=== PATIENT | female | born 1945 | race Caucasian/White ===

== ENCOUNTER 2020-07-29 09:48 | Emergency (ER) | payer OTHER ==
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
[2020-07-29 11:31] LABS: Absolute Lymphocytes (CBC) 1.2 K/uL (0.7-4.9); Basophils % 0.9 % (0-1.3); Hematocrit 35.4 % (36.0-45.0); Lymphocytes % 27.5 % (15.3-44.8); MPV 8.9 fL (7.6-11.3); RBC Red Blood Cell Count 3.62 M/uL (3.86-4.86)
[2020-07-29] MEDS ORDERED: NITROGLYCERIN 1 GM PKT TD ONE (11:35)
--- NOTE | 2020-07-29 11:41 | RAD REPORT ---
EXAM DESCRIPTION: RAD - Chest Single View - 07/29/2020 11:16 am CLINICAL HISTORY: CHEST PAIN, shortness of breath COMPARISON: May 2011, April 2010 TECHNIQUE: AP portable chest image was obtained 07/29/2020 11:16 am . FINDINGS: No peripheral mass or consolidations seen. Lung volumes are decreased compared to the 2 pr ior studies. Interstitial opacification is increased. In the acute clinical setting this is suspected to be interstitial edema or infiltrate. Minimal failure or volume overload would be possible. Heart size is normal range. No measurable pleural effusion and no pneumothorax. No acute bony abnormality s een. No acute aortic findings suspected. IMPRESSION: Increased interstitial opacification throughout both lung grace in part due to shallow inspiration. Interstitial pattern is increased over comparison and interstitial edema or infiltrate suspected.
[2020-07-29 11:58] LABS: ALT/SGPT 27 U/L (12-78); AST/SGOT 16 U/L (15-37); Albumin 3.7 g/dL (3.4-5.0); Alkaline Phosphatase 142 U/L (45-117); BUN Blood Urea Nitrogen 23 mg/dL (7-18); Bicarbonate 26 mmol/L (21-32); Bilirubin Direct < 0.1 mg/dL (0-0.2); Bilirubin Total 0.2 mg/dL (0.2-1.0); Glucose Level 123 mg/dL (74-106); Magnesium 1.9 mg/dL (1.8-2.4); NT PRO-BNP 259 pg/mL (<125); Potassium 4.2 mmol/L (3.5-5.1); Protein, Total 6.7 g/dL (6.4-8.2); Sodium Level 142 mmol/L (136-145); Troponin (Emerg Dept Use Only) 0.07 ng/mL (0.0-0.045)
--- NOTE | 2020-07-29 12:27 | EDPHYS ---
Physician Documentation [facility] Name: Anabel Mckeon Age: 74 yrs Sex: Female : 1945 Arrival Date: 07/29/2020 Time: 09:49 Bed 7 Private MD: ED Physician Dayday Gastelum HPI: 07/30 11:15 This 74 yrs old Female presents to ER via Wheelchair with complaints of Chest kdr Pain, Back Pain, Shortness Of Breath. 11:15 The patient or guardian reports chest pain that is located primarily in the substernal kdr area, anterior chest wall, left. Onset: suddenly, this morning. The pain does not radiate. Associated signs and symptoms: Pertinent positives: headache, shortness of breath. The chest pain is described as aching, burning, dull, a heaviness, a pressure. 11:15 Duration: The patient or guardian reports multiple episodes, that are intermittent, kdr that wax and wane, with no pattern, Now nearly completely resolved - the patient does not appear in any acute distress. Modifying factors: The symptoms are alleviated by nothing. the symptoms are aggravated by nothing. Severity of pain: At its worst the pain was mild in the emergency department the pain has improved markedly. The patient has not experienced similar symptoms in the past. The patient has not recently seen a physician. Historical: - Allergies: 07/29 10:00 VANCOMYCIN AND DERIVATIVES; tw2 - Home Meds: 10:00 levothyroxine oral [Active]; Primidone Oral [Active]; tw2 - PMHx: 10:00 Hypothyroidism; seizures - 40+ years ago; tw2 - Immunization history:: Adult Immunizations. - Social history:: Smoking status: . ROS: 07/30 11:15 Constitutional: Negative for fever, chills, and weight loss, Eyes: Negative for injury, kdr pain, redness, and discharge, ENT: Negative for injury, pain, and discharge, Neck: Negative for injury, pain, and swelling, Respiratory: Negative for shortness of breath, cough, wheezing, and pleuritic chest pain, Abdomen/GI: Negative for abdominal pain, nausea, vomiting, diarrhea, and constipation, Back: Negative for injury and pain, : Negative for injury, bleeding, discharge, and swelling, MS/Extremity: Negative for injury and deformity, Skin: Negative for injury, rash, and discoloration, Neuro: Negative for headache, weakness, numbness, tingling, and seizure activity. Psych: Negative for depression, anxiety, suicide ideation, homicidal ideation, and hallucinations, Allergy/Immunology: Negative for hives, rash, and allergies, Endocrine: Negative for neck swelling, polydipsia, polyuria, polyphagia, and marked weight changes, Hematologic/Lymphatic: Negative for swollen nodes, abnormal bleeding, and unusual bruising. Cardiovascular: Positive for chest pain, palpitations, Negative for edema, orthopnea. Exam: 07/29 11:41 ECG was reviewed by the Attending Physician. kdr 07/30 11:15 Constitutional: This is a well developed, well nourished patient who is awake, alert, kdr and in no acute distress. Head/Face: Normocephalic, atraumatic. Eyes: Pupils equal round and reactive to light, extra-ocular motions intact. Lids and lashes normal. Conjunctiva and sclera are non-icteric and not injected. Cornea within normal limits. Periorbital areas with no swelling, redness, or edema. Neck: Trachea midline, no thyromegaly or masses palpated, and no cervical lymphadenopathy. Supple, full range of motion without nuchal rigidity, or vertebral point tenderness. No Meningismus. Chest/axilla: Normal chest wall appearance and motion. Nontender with no deformity. No lesions are appreciated. Cardiovascular: Regular rate and rhythm with a normal S1 and S2. No gallops, murmurs, or rubs. Normal PMI, no JVD. No pulse deficits. Respiratory: Lungs have equal breath sounds bilaterally, clear to auscultation and percussion. No rales, rhonchi or wheezes noted. No increased work of breathing, no retractions or nasal flaring. Abdomen/GI: Soft, non-tender, with normal bowel sounds. No distension or tympany. No guarding or rebound. No evidence of tenderness throughout. Back: No spinal tenderness. No costovertebral tenderness. Full range of motion. Skin: Warm, dry with normal turgor. Normal color with no rashes, no lesions, and no evidence of cellulitis. MS/ Extremity: Pulses equal, no cyanosis. Neurovascular intact. Full, normal range of motion. Neuro: Awake and alert, GCS 15, oriented to person, place, time, and situation. Cranial nerves II-XII grossly intact. Motor strength 5/5 in all extremities. Sensory grossly intact. Cerebellar exam normal. Normal gait. Psych: Awake, alert, with orientation to person, place and time. Behavior, mood, and affect are within normal limits. Vital Signs: 07/29 09:57 Pulse 60; Resp 17; Temp 97.9(TE); Pulse Ox 99% on R/A; tw2 10:30 BP 124 / 76; Pulse 57; Resp 14; Pulse Ox 95% ; sv 11:27 BP 124 / 71; Pulse 53; Resp 19; Pulse Ox 93% ; Pain 5/10; jl7 12:09 BP 120 / 61; Pulse 52; Resp 14; Pulse Ox 97% ; Pain 0/10; jl7 12:09 Pulse 34 MON; jl7 13:53 BP 108 / 60; Pulse 57; Resp 14; Pulse Ox 93% ; jl7 14:28 BP 117 / 77; Pulse 53; Resp 15; Pulse Ox 96% ; sv 12:09 Sinus bradycardia jl7 MDM: 12:26 Patient medically screened. [facility] 07/30 11:15 Data reviewed: vital signs, nurses notes, lab test result(s), radiologic studies. kdr 07/29 10:54 Order name: Basic Metabolic Panel; Complete Time: 12:22 [facility] 07/29 10:54 Order name: CBC with Diff; Complete Time: 12:22 [facility] 07/29 10:54 Order name: LFT's; Complete Time: 12:22 kdr 07/29 10:54 Order name: Magnesium; Complete Time: 12:22 [facility] 07/29 10:54 Order name: NT PRO-BNP; Complete Time: 12:22 [facility] 07/29 10:54 Order name: PT-INR; Complete Time: 12:22 [facility] 07/29 10:54 Order name: Troponin (emerg Dept Use Only); Complete Time: 12:22 kdr 07/29 10:54 Order name: XRAY Chest (1 view); Complete Time: 12:22 kdr 07/29 10:54 Order name: EKG; Complete Time: 10:55 kdr 07/29 10:54 Order name: Cardiac monitoring; Complete Time: 11:17 kdr 07/29 14:57 Order name: SARS-COV-2 RT PCR; Complete Time: 15:39 EDMS 07/29 10:54 Order name: EKG - Nurse/Tech; Complete Time: 11:17 kdr 07/29 10:54 Order name: IV Saline Lock; Complete Time: 11: kdr 07/29 10:54 Order name: Labs collected and sent; Complete Time: : kdr 07/29 10:54 Order name: O2 Per Protocol; Complete Time: 11: kdr 07/29 10:54 Order name: O2 Sat Monitoring; Complete Time: : kdr EC/25 11:41 Rate is 54 beats/min. Rhythm is regular, Sinus bradycardia with No ectopy. QRS [place] is kdr Normal. [place] interval is normal. QRS interval is normal. QT interval is normal. Clinical impression: NSR w/ Non-specific ST/T Changes. Administered Medications: 11: Drug: Nitro-Bid Ointment 2 % 0.5 inches Route: Transdermal; Site: anterior chest wall; jl7 12:12 Follow up: Response: No adverse reaction; Pain is decreased jl7 12:30 Drug: Aspirin Chewable Tablet 324 mg Route: PO; jl7 14:29 Follow up: Response: No adverse reaction jl7 Disposition: 07/29/20 12:26 Transfer ordered to [facility]. Diagnosis are Non-ST elevation (NSTEMI) myocardial infarction, Bradycardia, unspecified. - Reason for transfer: Higher level of care. - Accepting physician is rr. - Condition is Fair. - Problem is new. - Symptoms are unchanged. Signatures: Dispatcher [employer] EDMS Daydya Gastelum MD MD kdr Chata Holder RN RN tw2 Moose Sung RN RN jl7 Corrections: (The following items were deleted from the chart) 14:09 13:14 CORONAVIRUS+MR.LAB.BRZ ordered. [facility] EDMS 15:49 12:26 07/29/2020 12:26 Transfer ordered to [facility]. Diagnosis is Non-ST jl7 elevation (NSTEMI) myocardial infarction; Bradycardia, unspecified. Reason for transfer: Higher level of care. Accepting physician is rr. Condition is Fair. Problem is new. Symptoms are unchanged. kdr
--- NOTE | 2020-07-29 12:27 | ER ---
Nurse's Notes [facility] Name: Anabel Mckeon Age: 74 yrs Sex: Female : 1945 Arrival Date: 07/29/2020 Time: 09:49 Bed 7 Private MD: Diagnosis: Non-ST elevation (NSTEMI) myocardial infarction;Bradycardia, unspecified Presentation: 07/29 09:57 Chief complaint: Patient states: SOB when walking this morning at 730, chest pain tw2 started this morning then and hasnt gone away, it is pain in the center of my chest and radiates toward the back. Coronavirus screen: At this time, the client does not indicate any symptoms associated with coronavirus-19. Ebola Screen: Patient denies travel to an Ebola-affected area in the 21 days before illness onset. Initial Sepsis Screen: Does the patient meet any 2 criteria? No. Patient's initial sepsis screen is negative. Does the patient have a suspected source of infection? No. Patient's initial sepsis screen is negative. Risk Assessment: Do you want to hurt yourself or someone else? Patient reports no desire to harm self or others. Onset of symptoms was July 29, 2020. 09:57 Method Of Arrival: Wheelchair tw2 09:57 Acuity: JUAN 3 tw2 Triage Assessment: 10:00 General: Appears in no apparent distress. well groomed, Behavior is calm, cooperative, tw2 appropriate for age. Pain: Complains of pain in mid-sternal area Pain radiates to back. Cardiovascular: Reports chest pain, shortness of breath, since this morning at 730. Historical: - Allergies: 10:00 VANCOMYCIN AND DERIVATIVES; tw2 - Home Meds: 10:00 levothyroxine oral [Active]; Primidone Oral [Active]; tw2 - PMHx: 10:00 Hypothyroidism; seizures - 40+ years ago; tw2 - Immunization history:: Adult Immunizations. - Social history:: Smoking status: . Screenin:35 Abuse screen: Denies threats or abuse. Nutritional screening: No deficits noted. tw2 Tuberculosis screening: No symptoms or risk factors identified. Fall Risk None identified. Assessment: 10:35 Pain: Pain began 3 hours ago. tw2 10:45 General: Appears in no apparent distress. uncomfortable, Behavior is calm, cooperative, jl7 appropriate for age. Pain: Complains of pain in mid-sternal area Pain radiates to back and left arm Pain currently is 5 out of 10 on a pain scale. at worst was 7 out of 10 on a pain scale. Quality of pain is described as pressure, Pain began 3 hours ago. Is continuous. Neuro: Level of Consciousness is awake, alert, obeys commands, Oriented to person, place, time, situation. Cardiovascular: Reports chest pain, nausea, shortness of breath, Patient's skin is warm and dry. Rhythm is regular. Respiratory: Airway is patent Respiratory effort is even, unlabored, Respiratory pattern is regular, symmetrical. Derm: Skin is pink, warm \T\ dry. 11:55 Reassessment: Pt HR noted to be 34 on monitor, Dr. Gastelum notified and at bedside, jl7 repeat EKG done, pt denies pain and reports a little pressure after the EKG but that was it. 12:09 Reassessment: Dr. Gastelum at bedside discussing results and POC, pt verbalizes [facility] understanding. 13:00 Reassessment: Patient appears in no apparent distress at this time. Patient and/or jl7 family updated on plan of care and expected duration. Pain level reassessed. Patient is alert, oriented x 3, equal unlabored respirations, skin warm/dry/pink. Patient denies pain at this time. 14:00 Reassessment: Patient appears in no apparent distress at this time. No changes from jl7 previously documented assessment. Patient and/or family updated on plan of care and expected duration. Pain level reassessed. Patient is alert, oriented x 3, equal unlabored respirations, skin warm/dry/pink. Vital Signs: 09:57 Pulse 60; Resp 17; Temp 97.9(TE); Pulse Ox 99% on R/A; tw2 10:30 BP 124 / 76; Pulse 57; Resp 14; Pulse Ox 95% ; sv 11:27 BP 124 / 71; Pulse 53; Resp 19; Pulse Ox 93% ; Pain 5/10; jl7 12:09 BP 120 / 61; Pulse 52; Resp 14; Pulse Ox 97% ; Pain 0/10; jl7 12:09 Pulse 34 MON; jl7 13:53 BP 108 / 60; Pulse 57; Resp 14; Pulse Ox 93% ; jl7 14:28 BP 117 / 77; Pulse 53; Resp 15; Pulse Ox 96% ; sv 12:09 Sinus bradycardia jl7 ED Course: 09:49 Patient arrived in ED. as 09:52 Moose Sung RN is Primary Nurse. jl7 09:56 Dayday Gastelum MD is Attending Physician. kdr 09:58 Triage completed. tw2 10:00 Arm band placed on. tw2 10:01 Patient maintains SpO2 saturation greater than 95% on room air. tw2 10:05 Patient has correct armband on for positive identification. Bed in low position. Call mh5 light in reach. Side rails up X2. Warm blanket given. solution director on. Pulse ox on. NIBP on. 10:05 EKG done, by ED staff, reviewed by Dayday Gastelum MD. [facility] 11:10 Initial lab(s) drawn, by ga, sent to lab. Inserted saline lock: 20 gauge in left jl7 antecubital area, using aseptic technique. Blood collected. 11:16 XRAY Chest (1 view) In Process Unspecified. EDMS 12:[address] [facility] transfer center contacted to initiate transfer. em1 12:[address] [facility] transfer center denies based on capacity. em1 12:32 [facility] transfer center contacted to initiate transfer. em1 12:51 [facility] transfer center denies based on capacity. em1 13:18 [facility] transfer center contacted to initiate transfer; ER doc at [facility] being em1 contacted. 14:00 No provider procedures requiring assistance completed. Patient transferred, IV remains jl7 in place. intact, No redness/swelling at site. Administered Medications: 11:21 Drug: Nitro-Bid Ointment 2 % 0.5 inches Route: Transdermal; Site: anterior chest wall; jl7 12:12 Follow up: Response: No adverse reaction; Pain is decreased jl7 12:30 Drug: Aspirin Chewable Tablet 324 mg Route: PO; jl7 14:29 Follow up: Response: No adverse reaction jl7 Outcome: 12:26 ER care complete, transfer ordered by . kdr 15:49 Patient left the ED. jl7 Signatures: Dispatcher [employer] EDMS Cecilia Lopez RN RN Dayday Gastelum MD MD kdr Martinez, Amelia as Martinez, Eric em1 Chata Holder RN RN [facility] Ayse Rahman [facility] Moose Sung, RN RN jl7
[2020-07-29] MEDS ORDERED: ASPIRIN 81 MG CHEWABLE TABLET ONE (12:42)
[2020-07-29] MEDS ORDERED: ONDANSETRON 4 MG/2 ML VIAL ONE (13:41)
[2020-07-29 16:28] VITALS: TEMP 97.9
[2020-07-29 16:34] VITALS: BP 117/77; O2SAT 96
--- NOTE | 2020-07-30 14:13 | EKG ---
Test Date: 2020-07-29 Test Time: 09:58:26 [employer]: KATHY MEASUREMENT RESULTS: Intervals: Rate: 54 MT: 150 QRSD: 102 QT: 436 QTc: 413 [place]: P: 41 MT: 150 QRS: 22 T: 46 INTERPRETIVE STATEMENTS: Sinus bradycardia ST abnormality, possible digitalis effect Abnormal ECG Compared to ECG 06/25/2014 17:07:25 ST (T wave) deviation now present Electronically Signed On 07-30-20 14:09:22 COAL FEEDER OPERATOR by Bret Morgan
--- NOTE | 2020-07-30 14:13 | EKG ---
Test Date: 2020-07-29 Test Time: 11:55:03 Airbrush Artist: ANGELA MEASUREMENT RESULTS: Intervals: Rate: 30 OR: 164 QRSD: 100 QT: 488 QTc: 344 [place]: P: 32 OR: 164 QRS: 15 T: 22 INTERPRETIVE STATEMENTS: Marked sinus bradycardia with marked sinus arrhythmia Nonspecific ST and T wave abnormality Abnormal ECG Compared to ECG 07/29/2020 09:58:26 No significant changes Electronically Signed On 07-30-20 14:09:17 OPTIMIZATION CONSULTANT by Bret Morgan
== END 2020-07-29 15:49 | disposition short-term general hospital (02) ==
LOC: ER 09:48
DX: I21.4 Non-ST elevation (NSTEMI) myocardial infarction (principal); R00.1 Bradycardia, unspecified; E03.9 Hypothyroidism, unspecified; Z20.822 Contact with and (suspected) exposure to COVID-19; Z88.3 Allergy status to other anti-infective agents
CPT/HCPCS: 93005 ×2; 85025; 80048; 36415; 83735; 85610; 80076; 84484; 83880; 71045; 99285; U0003; J2405

== ENCOUNTER → 2023-08-10 | Emergency (ER) | payer OTHER ==
[~2023-08-10] MED LIST: CEFDINIR 300 MG CAP PO ONE; Levofloxacin500mg IV 500 MG/100 ML BAG IV ONE; Meropenem 1000 MG/VIAL IV ONE; NA CHLORIDE 0.9% 100 ML ONE; POTASSIUM 25 MEQ EFFERV TAB ONE
[2023-08-10 17:19] LABS: Absolute Basophils 0.1 K/uL (0-0.5); Absolute Lymphocytes (CBC) 2.1 K/uL (0.7-4.9); Basophils % 0.6 % (0-1.3); Hematocrit 38.9 % (36.0-45.0); Lymphocytes % 22.3 % (15.3-44.8); MCV 97.6 fL (80-100); MPV 8.3 fL (7.6-11.3); Platelets 156 thou/uL (152-406); RBC Red Blood Cell Count 3.99 M/uL (3.86-4.86)
[2023-08-10 17:35] LABS: Albumin 3.8 g/dL (3.4-5.0); Anion Gap 9.4 mEq/L (5.0-15.0); Bilirubin Direct 0.1 mg/dL (0-0.2); Bilirubin Indirect, Calculated 0.3 mg/dL (0.2-0.8); Bilirubin Total 0.4 mg/dL (0.2-1.0); Magnesium 2.4 mg/dL (1.6-2.4); Potassium 3.4 mEq/L (3.5-5.1); Protein, Total 7.6 g/dL (6.4-8.2)
[2023-08-10 17:42] LABS: Protime INR 1.2
--- NOTE | 2023-08-10 17:44 | RAD REPORT ---
EXAM DESCRIPTION: RAD - Chest Single View - 08/10/2023 5:34 pm CLINICAL HISTORY: COUGH COMPARISON: Chest Pa And Lat (2 Views) dated 08/10/2020; Chest Single View dated 07/29/2020; CHEST PA A ND LAT 2 VIEW dated 05/16/2011; CHEST PA AND LAT 2 VIEW dated 05/02/2010 FINDINGS: Lines: None. Lungs: Mild nonspecific coarsening of the pulmonary interstitium. Pleural: No significant pleural effusions or pneumothorax. Cardiac: The heart size is within normal limits. Mediastinum: Within normal limits. Bones: No acute fractures. Other: None IMPRESSION: Mild coarsening of the pulmonary interstitium could reflect a nonspecific infectious or inflammatory process. No edema or consolidative airspace disease identified .
--- NOTE | 2023-08-10 18:04 | RAD REPORT ---
EXAM DESCRIPTION: CTAbdomen Pelvis W Contrast - 08/10/2023 5:55 pm CLINICAL HISTORY: FLANK PAIN COMPARISON: No comparisons TECHNIQUE: CT of the abdomen and pelvis was performed. All CT scans are performed using dose optimization technique as appropriate and may include automated exposure control or mA/KV adjustment according to patient size. FINDINGS: Lower chest: No acute abnormality. Liver: No acute abnormality or suspicious lesions. Biliary: No biliary ductal dilatation. Stomach: No significant focal abnormality. Duodenum: No significant focal abnormality. Pancreas: No significant abnormality. Spleen: No significant abnormality. Adrenal: No suspicious lesions. Kidney/ureter: No hydronephrosis. No renal calculi. Retroperitoneum: No retroperitoneal adenopathy. Vascular: No aneurysm. Atherosclerosis . Bowel: No significant focal abnormality. Normal appendix. Peritoneum: No ascites or free air. Small fat containing umbilical hernia. Bladder: Grossly unremarkable. Reproductive: No adnexal masses. Bones: No acute fracture. Bilateral hip arthroplasties. Other: n/a IMPRESSION: No acute intra-abdominal or pelvic finding.
[2023-08-10 18:22] LABS: Specific Gravity > 1.030 (1.005-1.030); Urine Bacteria <20 /HPF (<20); Urine Bilirubin NEGATIVE (Negative); Urine Blood 1+ (Negative); Urine Clarity Turbid (Clear); Urine Color Light-Yellow (Yellow); Urine Glucose NEGATIVE (Negative); Urine Mucus Slight /HPF (None Seen); Urine Protein NEGATIVE (Negative); Urine Urobilinogen Normal (Normal)
--- NOTE | 2023-08-10 18:26 | ER ---
Nurse's Notes [facility] Name: Anabel Mckeon Age: 77 yrs Sex: Female : 1945 Arrival Date: 08/10/2023 Time: 15:20 Bed 17 Private MD: Diagnosis: Fever, unspecified;Dysuria;Hypokalemia;UTI/ Urinary tract infection, site not specified Presentation: 08/09 15:52 Chief complaint: Patient states: urinary frequency, fever up to 102.2* F at home x 2 aa5 days ago. 15:52 Coronavirus screen: fever. Ebola Screen: Patient denies travel to an Ebola-affected [facility] area in the 21 days before illness onset. Initial Sepsis Screen: Does the patient meet any 2 criteria? No. Patient's initial sepsis screen is negative. Does the patient have a suspected source of infection? No. Patient's initial sepsis screen is negative. Risk Assessment: Do you want to hurt yourself or someone else? Patient reports no desire to harm self or others. Onset of symptoms was August 2023. 15:52 Acuity: JUAN 3 aa5 15:52 Method Of Arrival: Ambulatory aa5 Historical: - Allergies: 15:52 VANCOMYCIN AND DERIVATIVES; aa5 15:55 STATINS HMG COA REDUCTASE INHIBITORS (Caused elevation of liver enzyme)); aa5 - PMHx: 15:52 Hypothyroidism; seizures - 40+ years ago; aa5 - PSHx: 15:55 right hip; left hip; aa5 - Immunization history:: Adult Immunizations unknown. - Social history:: Smoking status: Patient denies any tobacco usage or history of. Screenin:25 [facility] ED Fall Risk Assessment (Adult) History of falling in the last 3 months, kd3 including since admission No falls in past 3 months (0 pts) Confusion or Disorientation No (0 pts) Intoxicated or Sedated No (0 pts) Impaired Gait No (0 pts) Mobility Assist Device Used Yes (1 pt) Altered Elimination No (0 pt) Score/Fall Risk Level 0 - 2 = Low Risk Maintained a safe environment. Abuse screen: Denies threats or abuse. Denies injuries from another. Nutritional screening: No deficits noted. Tuberculosis screening: No symptoms or risk factors identified. Assessment: 17:24 General: Appears in no apparent distress. Behavior is calm, cooperative. Pain: kd3 Complains of pain in right low back and right mid back and left mid back and left low back. Neuro: Level of Consciousness is awake, alert, obeys commands, Oriented to person, place, time, situation. Cardiovascular: Patient's skin is warm and dry. Respiratory: Airway is patent Trachea midline Respiratory effort is even, unlabored, Respiratory pattern is regular, symmetrical. 18:57 General: Pt provided a sandwich and pudding for snacks. Pt updated on plan of care. Pt kd3 has no new requests at this time. . 19:45 General: Pt awaiting her antibiotics to be complete to discharge. . kd3 Vital Signs: 15:52 BP 149 / 80; Pulse 76; Resp 16 S; Temp 98.3(O); Pulse Ox 96% on R/A; Weight 85.73 kg aa5 (R); Height 5 ft. 5 in. (R); 17:27 BP 120 / 90; Pulse 70; Resp 16; Pulse Ox 94% on R/A; kd3 18:57 BP 129 / 68; Pulse 81; Resp 16; Pulse Ox 95% on R/A; kd3 19:46 BP 124 / 88; Pulse 78; Resp 17; Pulse Ox 95% on R/A; kd3 15:52 Body Mass Index 31.45 (85.73 kg, 165.1 cm) aa5 ED Course: 15:22 Patient arrived in ED. rg4 15:35 Orion Will MD is Attending Physician. [email or web address] 15:52 Arm band placed on. aa5 15:54 Triage completed. aa5 17:07 Client placed on continuous cardiac and pulse oximetry monitoring. NIBP monitoring hb applied. desk monitor on. Pulse ox on. NIBP on. 17:07 EKG done, by ED staff, reviewed by Orion Will MD. hb 17:24 Jocelin Morales, RN is Primary Nurse. kd3 17:25 Patient has correct armband on for positive identification. Placed in gown. Bed in low kd3 position. Side rails up X2. Provided Education on: blood cultures . 17:25 Inserted saline lock: 20 gauge in left antecubital area, using aseptic technique. hb ,using aseptic technique. by ED staff Blood collected. 17:26 Troponin HS Sent. kd3 17:26 PT-INR Sent. kd3 17:26 NT PRO-BNP Sent. kd3 17:26 Magnesium Sent. kd3 17:26 LFT's Sent. kd3 17:26 CBC with Diff Sent. kd3 17:26 Basic Metabolic Panel Sent. kd3 17:26 Lipase Sent. kd3 17:26 Blood Culture Adult (2) Sent. kd3 17:26 Lactate w/ 2H reflex if indic. Sent. kd3 17:36 XRAY Chest (1 view) In Process Unspecified. EDMS 17:57 CT Abd/Pelvis - IV Contrast Only In Process Unspecified. EDMS 18:18 Urinalysis w/ reflexes Sent. kd3 18:18 Urine Culture Sent. kd3 20:20 No provider procedures requiring assistance completed. IV discontinued, intact, kd3 bleeding controlled, No redness/swelling at site. Pressure dressing applied. Administered Medications: 17:43 Drug: NS 0.9% IV 1000 ml IV at 1 bolus Per protocol; 1000 mL bolus Route: IV; Rate: 1 kd3 bolus; Site: left antecubital; 19:47 Follow up: IV Status: Completed infusion; IV Intake: 1000ml kd3 17:43 Drug: Meropenem IV 1 grams IV at per protocol once; (mix in NS 100 mL) Route: IV; Rate: kd3 per protocol; Site: left antecubital; 19:47 Follow up: Response: No adverse reaction; IV Status: Completed infusion; IV Intake: kd3 100ml 18:18 Drug: Potassium PO Effervescent Tablet 25 mEq PO once; dissolve in 4 ounces of water or kd3 juice Route: PO; 19:47 Follow up: Response: No adverse reaction kd3 18:48 Drug: Cefdinir PO 300 mg PO once Route: PO; hb 19:46 Follow up: Response: No adverse reaction kd3 18:51 CANCELLED (Duplicate Order): hydromorphone1 mg IVP once [email or web address] 18:51 CANCELLED (Duplicate Order): diazepam5 mg PO once [email or web address] 18:51 CANCELLED (Duplicate Order): ondansetron 4 mg IVP once; over 2 minutes [email or web address] 19:18 Drug: levofloxacin IVPB 500 mg 100 ml IVPB once over 60 mins Volume: 100 ml; Route: kd3 IVPB; Infused Over: 60 mins; Site: left antecubital; Medication: 17:26 VIS not applicable for this client. kd3 Intake: 19:47 IV: 100ml; Total: 100ml. kd3 19:47 IV: 1000ml; Total: 1100ml. kd3 Outcome: 18:25 Discharge ordered by . [email or web address] 20:20 Discharged to home ambulatory, kd3 20:20 Condition: stable 20:20 Discharge instructions given to patient, Instructed on discharge instructions, follow up and referral plans. medication usage, Demonstrated understanding of instructions, follow-up care, medications, Prescriptions given X 3, 20:20 Patient left the ED. kd3 Signatures: Dispatcher [employer] EDMS Orion Will MD MD cha Calderon, Audri, RN RN aa5 Ann Khan RN RN Jeny Prasad 4 Jocelin Morales RN RN kd3 Corrections: (The following items were deleted from the chart) 15:58 15:52 BP 149 / 80; Pulse 76bpm; Resp 16bpm; Spontaneous; Pulse Ox 96% RA; Temp 98.3F aa5 Oral; aa5
--- NOTE | 2023-08-10 18:26 | EDPHYS ---
Physician Documentation [facility] Name: Anabel Mckeon Age: 77 yrs Sex: Female : 1945 Arrival Date: 08/10/2023 Time: 15:20 Bed 17 Private MD: ED Physician Orion Will HPI: 08/09 17:11 This 77 yrs old Female presents to ER via Ambulatory with complaints of zuleyka Urinary Problem, Fever. 17:11 The patient reports fever, that was measured at 102 degrees Fahrenheit. Onset: The zuleyka symptoms/episode began/occurred 2 day(s) ago. Modifying factors: there are no obvious modifying factors. Associated signs and symptoms: Pertinent positives: backache, chills. Severity of symptoms: At their worst the symptoms were moderate in the emergency department the symptoms are unchanged. The patient has not experienced similar symptoms in the past. Historical: - Allergies: 15:52 VANCOMYCIN AND DERIVATIVES; aa5 15:55 STATINS HMG COA REDUCTASE INHIBITORS (Caused elevation of liver enzyme)); aa5 - PMHx: 15:52 Hypothyroidism; seizures - 40+ years ago; aa5 - PSHx: 15:55 right hip; left hip; aa5 - Immunization history:: Adult Immunizations unknown. - Social history:: Smoking status: Patient denies any tobacco usage or history of. ROS: 17:12 Constitutional: Negative for fever, chills, and weight loss, Eyes: Negative for injury, zuleyka pain, redness, and discharge, ENT: Negative for injury, pain, and discharge, Neck: Negative for injury, pain, and swelling, Cardiovascular: Negative for chest pain, palpitations, and edema, Respiratory: Negative for shortness of breath, cough, wheezing, and pleuritic chest pain, Abdomen/GI: Negative for abdominal pain, nausea, vomiting, diarrhea, and constipation, : Negative for injury, bleeding, discharge, and swelling, MS/Extremity: Negative for injury and deformity, Skin: Negative for injury, rash, and discoloration, Neuro: Negative for headache, weakness, numbness, tingling, and seizure, Psych: Negative for depression, anxiety, suicide ideation, homicidal ideation, and hallucinations, Allergy/Immunology: Negative for hives, rash, and allergies, Endocrine: Negative for neck swelling, polydipsia, polyuria, polyphagia, and marked weight changes, Hematologic/Lymphatic: Negative for swollen nodes, abnormal bleeding, and unusual bruising, 17:12 Back: Positive for flank pain, bilaterally, of the left low back, left mid back, right mid back and right low back, Exam: 17:12 Constitutional: This is a well developed, well nourished patient who is awake, alert, zuleyka and in no acute distress. Head/Face: Normocephalic, atraumatic. Eyes: Pupils equal round and reactive to light, extra-ocular motions intact. Lids and lashes normal. Conjunctiva and sclera are non-icteric and not injected. Cornea within normal limits. Periorbital areas with no swelling, redness, or edema. ENT: Nares patent. No nasal discharge, no septal abnormalities noted. Tympanic membranes are normal and external auditory canals are clear. Oropharynx with no redness, swelling, or masses, exudates, or evidence of obstruction, uvula midline. Mucous membranes moist. Neck: Trachea midline, no thyromegaly or masses palpated, and no cervical lymphadenopathy. Supple, full range of motion without nuchal rigidity, or vertebral point tenderness. No Meningismus. Chest/axilla: Normal chest wall appearance and motion. Nontender with no deformity. No lesions are appreciated. Cardiovascular: Regular rate and rhythm with a normal S1 and S2. No gallops, murmurs, or rubs. Normal PMI, no JVD. No pulse deficits. Respiratory: Lungs have equal breath sounds bilaterally, clear to auscultation and percussion. No rales, rhonchi or wheezes noted. No increased work of breathing, no retractions or nasal flaring. Abdomen/GI: Soft, non-tender, with normal bowel sounds. No distension or tympany. No guarding or rebound. No evidence of tenderness throughout. Back: No spinal tenderness. No costovertebral tenderness. Full range of motion. Female : Normal external genitalia. Skin: Warm, dry with normal turgor. Normal color with no rashes, no lesions, and no evidence of cellulitis. MS/ Extremity: Pulses equal, no cyanosis. Neurovascular intact. Full, normal range of motion. Neuro: Awake and alert, GCS 15, oriented to person, place, time, and situation. Cranial nerves II-XII grossly intact. Motor strength 5/5 in all extremities. Sensory grossly intact. Cerebellar exam normal. Normal gait. Psych: Awake, alert, with orientation to person, place and time. Behavior, mood, and affect are within normal limits. 17:12 Back: pain, that is mild, of the left low back, left mid back, right mid back and right low back, 17:35 ECG was reviewed by the Attending Physician. [facility] Vital Signs: 15:52 BP 149 / 80; Pulse 76; Resp 16 S; Temp 98.3(O); Pulse Ox 96% on R/A; Weight 85.73 kg aa5 (R); Height 5 ft. 5 in. (R); 17:27 BP 120 / 90; Pulse 70; Resp 16; Pulse Ox 94% on R/A; kd3 18:57 BP 129 / 68; Pulse 81; Resp 16; Pulse Ox 95% on R/A; kd3 19:46 BP 124 / 88; Pulse 78; Resp 17; Pulse Ox 95% on R/A; kd3 15:52 Body Mass Index 31.45 (85.73 kg, 165.1 cm) aa5 MDM: 15:35 Patient medically screened. zuleyka 17:13 Differential diagnosis: nephrolithiasis, pyelonephritis, UTI, diverticulitis, zuleyka pancreatitis, viral Infection, bacterial infection, URI, bronchitis, pneumonia UTI, gastroenteritis. Data reviewed: vital signs, nurses notes, lab test result(s), EKG, radiologic studies, CT scan, plain films. Consideration of Admission/Observation Patient was admitted/placed on observation. Escalation of care including admission/observation considered. I considered the following discharge prescriptions or medication management in the emergency department Medications were administered in the Emergency Department. See MAR. Independent interpretation of the following test(s) in the Emergency Department EKG: See my EKG interpretation above. Test considered but Not performed: Ultrasound NO RENAL USG. Care significantly affected by the following chronic conditions: Obesity, SEIZURE, HYPOTHYROID. 08/09 15:37 Order name: Basic Metabolic Panel; Complete Time: 17:36 [facility] 08/09 15:37 Order name: CBC with Diff; Complete Time: 17:36 [facility] 08/09 15:37 Order name: LFT's; Complete Time: 17:36 [facility] 08/09 15:37 Order name: Magnesium; Complete Time: 17:36 [facility] 08/09 15:37 Order name: NT PRO-BNP; Complete Time: 17:36 [facility] 08/09 15:37 Order name: PT-INR; Complete Time: 18:09 [facility] 08/09 15:37 Order name: Troponin HS; Complete Time: 17:36 [facility] 08/09 15:37 Order name: Lipase; Complete Time: 17:36 [facility] 08/09 15:37 Order name: Blood Culture Adult (2) 08/09 15:37 Order name: Lactate w/ 2H reflex if indic.; Complete Time: 17:36 [facility] 08/09 15:37 Order name: Urinalysis w/ reflexes; Complete Time: 18:24 [facility] 08/09 15:37 Order name: Urine Culture 08/09 15:37 Order name: XRAY Chest (1 view); Complete Time: 18:09 [facility] 08/09 15:37 Order name: CT Abd/Pelvis - IV Contrast Only; Complete Time: 18:09 [facility] 08/09 15:37 Order name: EKG; Complete Time: 15:37 [facility] 08/09 15:37 Order name: Cardiac monitoring; Complete Time: 17:26 [facility] 08/09 15:37 Order name: EKG - Nurse/Tech; Complete Time: 17:26 [facility] 08/09 15:37 Order name: IV Saline Lock; Complete Time: 17:26 [facility] 08/09 15:37 Order name: Labs collected and sent; Complete Time: 17:26 [facility] 08/09 15:37 Order name: O2 Per Protocol; Complete Time: 17:26 [facility] 08/09 15:37 Order name: O2 Sat Monitoring; Complete Time: 17:26 [facility] 08/09 18:18 Order name: PO challenge: JUICE; Complete Time: 18:18 [facility] EC:35 Rate is 71 beats/min. Rhythm is regular. QRS [place] is Normal. [place] interval is normal. QRS zuleyka interval is normal. QT interval is normal. No Q waves. T waves are Normal. No ST changes noted. Clinical impression: NSR w/ Non-specific ST/T Changes, LVH, and No evidence of ischemia. Interpreted by me. Reviewed by me. Administered Medications: 17:43 Drug: NS 0.9% IV 1000 ml IV at 1 bolus Per protocol; 1000 mL bolus Route: IV; Rate: 1 kd3 bolus; Site: left antecubital; 19:47 Follow up: IV Status: Completed infusion; IV Intake: 1000ml kd3 17:43 Drug: Meropenem IV 1 grams IV at per protocol once; (mix in NS 100 mL) Route: IV; Rate: kd3 per protocol; Site: left antecubital; 19:47 Follow up: Response: No adverse reaction; IV Status: Completed infusion; IV Intake: kd3 100ml 18:18 Drug: Potassium PO Effervescent Tablet 25 mEq PO once; dissolve in 4 ounces of water or kd3 juice Route: PO; 19:47 Follow up: Response: No adverse reaction kd3 18:48 Drug: Cefdinir PO 300 mg PO once Route: PO; hb 19:46 Follow up: Response: No adverse reaction kd3 18:51 CANCELLED (Duplicate Order): hydromorphone1 mg IVP once zuleyka 18:51 CANCELLED (Duplicate Order): diazepam5 mg PO once zuleyka 18:51 CANCELLED (Duplicate Order): ondansetron 4 mg IVP once; over 2 minutes zuleyka 19:18 Drug: levofloxacin IVPB 500 mg 100 ml IVPB once over 60 mins Volume: 100 ml; Route: kd3 IVPB; Infused Over: 60 mins; Site: left antecubital; Disposition Summary: 08/10/23 18:25 Discharge Ordered Notes: Location: Home [facility] Problem: new zuleyka Symptoms: have improved zuleyka Condition: Stable zuleyka Diagnosis - Fever, unspecified zuleyka - Dysuria zuleyka - Hypokalemia zuleyka - UTI/ Urinary tract infection, site not specified zuleyka Followup: [facility] - With: Private Physician - When: 2 - 3 days - Reason: Recheck today's complaints, Continuance of care, Re-evaluation by your physician Discharge Instructions: - Discharge Summary Sheet [facility] - Potassium Content of Foods zuleyka - Dysuria zuleyka - Fever, Adult zuleyka - Urinary Tract Infection, Adult zuleyka - Urinary Tract Infection, Adult, [id number] zuleyka - Fever, Adult, [id number] zuleyka - Hypokalemia [facility] Forms: - Medication Reconciliation Form [facility] - Thank You Letter [facility] - Antibiotic Education zuleyka - Prescription Opioid Use zuleyka - Patient Portal Instructions zuleyka - Leadership Thank You Letter [facility] Prescriptions: - cefdinir 300 mg Oral capsule - take 1 capsule ORAL route every 12 hours; 14 capsule; Refills: 0, Product zuleyka Selection Permitted - Tylenol 325 mg Oral tablet - take 2 tablets ORAL route every 6 hours as needed; 50 tablet; Refills: 0, zuleyka Product Selection Permitted - levofloxacin 500 mg Oral tablet - take 1 tablet ORAL route once daily for 7 days; 7 tablet; Refills: 0, Product zuleyka Selection Permitted Signatures: Dispatcher [employer] Orion Lazar MD MD cha Calderon, Audri, RN RN aa5 Ann Khan RN RN Jocelin Morales RN RN kd3 Corrections: (The following items were deleted from the chart) 18:51 18:50 HYDROmorphone IVP 1 mg IVP once ordered. zuleyka gardiner 18:51 18:50 Diazepam PO 5 mg PO once ordered. zuleyka gardiner 18:51 18:50 Ondansetron IVP 4 mg IVP once; over 2 minutes ordered. zuleyka gardiner
[2023-08-10 20:37] VITALS: BP 124/88; TEMP 98.3; O2SAT 95
== END ==
LOC: ER 15:20
DX: N39.0 Urinary tract infection, site not specified (principal); E87.6 Hypokalemia; R30.0 Dysuria; Z88.3 Allergy status to other anti-infective agents; Z88.8 Allergy status to other drugs, medicaments and biological substances
CPT/HCPCS: 96365; 87040 ×2; 87088; 85025; 81001; 87086; 80048; 36415; 83735; 85610; 80076; 83605; 84484; 83690; 83880; 74177; 71045; 96375; 99285; 96366; Q9967; J2185